=== PATIENT | male | born 1930 | race Two or more races ===

== ENCOUNTER 2017-02-16 12:15 | Inpatient (IN) | payer MEDICARE, MEDICAID ==
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
[2017-02-16 13:55] LABS: Anion Gap 7 mmol/L (2-11); CO2 Carbon Dioxide 28 mmol/L (22-32); Chloride 100 mmol/L (101-111); Glucose 92 mg/dL (70-100); Potassium 4.5 mmol/L (3.5-5.0); Sodium 135 mmol/L (133-145)
[2017-02-16 13:56] LABS: ALT 7 U/L (7-52); AST 14 U/L (13-39); Albumin 4.2 g/dL (3.2-5.2); Alkaline Phosphatase 53 U/L (34-104); BUN/Creatinine Ratio 21.5 (8-20); Blood Urea Nitrogen 23 mg/dL (6-24); EGFR African American 84.1 (>60); EGFR Non-African American 65.4 (>60); Total Protein 7.2 g/dL (6.4-8.9)
[2017-02-16 13:57] LABS: Acetaminophen < 15 mcg/mL; Alcohol < 10 mg/dL (<10); Salicylate < 2.50 mg/dL (<30)
[2017-02-16 14:05] LABS: Hematocrit 46 % (42-52); Hemoglobin 15.4 g/dl (14.0-18.0); Mean Corpuscular Hemoglobin 32 pg (27-31); Mean Corpuscular Volume 96 fL (80-94); Red Blood Count 4.81 10^6/ul (4.0-5.4); White Blood Count 7.4 10^3/ul (3.5-10.8)
[2017-02-16 14:06] LABS: Mean Corpuscular HGB Conc 33 g/dl (31-36); Mean Platelet Volume 9 um3 (7.4-10.4); Red Cell Distribution Width 14 % (10.5-15)
[2017-02-16 14:09] LABS: TSH (Thyroid Stimulating Horm) 1.62 mcIU/mL (0.34-5.60)
[2017-02-16 15:00] LABS: Urine Nitrite Negative (Negative)
[2017-02-16 15:01] LABS: Urine Bacteria Absent (Absent); Urine Bilirubin Negative (Negative); Urine Glucose Negative (Negative)
[2017-02-16 15:26] LABS: Benzodiazepine Urine Screen None Detected (None Detect)
[2017-02-16] MEDS ORDERED: Acetaminophen TAB* 325 MG PO PRN (16:37)
[2017-02-16] MEDS ORDERED: Ondansetron INJ* 2 MG/ML VIAL IV PRN (16:37)
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
[2017-02-16] MEDS: Mometasone/Formoter 200/5 MDI INH SCH (20:46)
[2017-02-16] MEDS: guaiFENesin ER TAB 600 MG PO SCH (21:02)
[2017-02-16] MEDS: Divalproex ER TAB(*) 500 MG PO SCH (21:02)
[2017-02-16] MEDS: Heparin VIAL(*) 5000 UNITS/ML VIAL (FIVE THOUSAND) SUBCUT SCH (21:03)
[2017-02-17] MEDS: Heparin VIAL(*) 5000 UNITS/ML VIAL (FIVE THOUSAND) SUBCUT SCH ×3 (07:21→21:25)
[2017-02-17] MEDS: Mometasone/Formoter 200/5 MDI INH SCH ×2 (07:32→19:54)
[2017-02-17] MEDS: guaiFENesin ER TAB 600 MG PO SCH ×2 (07:32→21:19)
[2017-02-17] MEDS: Divalproex ER TAB(*) 250 MG PO SCH (07:32)
[2017-02-17 09:47] LABS: Hematocrit 45 % (42-52); Hemoglobin 15.2 g/dl (14.0-18.0); Mean Corpuscular HGB Conc 34 g/dl (31-36); Mean Corpuscular Hemoglobin 32 pg (27-31); Mean Corpuscular Volume 95 fL (80-94); Mean Platelet Volume 9 um3 (7.4-10.4); Red Blood Count 4.79 10^6/ul (4.0-5.4); Red Cell Distribution Width 14 % (10.5-15)
[2017-02-17 10:03] LABS: BUN/Creatinine Ratio 19.5 (8-20); Calcium 8.9 mg/dL (8.6-10.3); EGFR African American 75.1 (>60); EGFR Non-African American 58.4 (>60); Potassium 4.3 mmol/L (3.5-5.0)
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
[2017-02-17] MEDS: Divalproex ER TAB(*) 500 MG PO SCH (21:19)
[2017-02-18] MEDS: Heparin VIAL(*) 5000 UNITS/ML VIAL (FIVE THOUSAND) SUBCUT SCH ×3 (06:08→23:00)
[2017-02-18] MEDS: Mometasone/Formoter 200/5 MDI INH SCH ×2 (08:13→19:24)
[2017-02-18] MEDS: guaiFENesin ER TAB 600 MG PO SCH ×2 (08:25→20:26)
[2017-02-18] MEDS: Divalproex ER TAB(*) 250 MG PO SCH (08:26)
--- NOTE | 2017-02-18 14:53 | PN ---
Subjective Date of Service: 02/18/17 Interval History: Patient seen this morning. Pleasantly demented. No complaints. Family History: Unchanged from Admission Social History: Unchanged from Admission Past Medical History: Unchanged from Admission Objective Active Medications: Acetaminophen (Tylenol Tab*) 650 mg PO Q4H PRN PRN Reason: FEVER/PAIN Divalproex Sodium (Depakote Er Tab(*)) 500 mg PO BEDTIME [facility] Last Admin: 02/17/17 21:19 Dose: 500 mg Divalproex Sodium (Depakote Er Tab(*)) 250 mg PO DAILY [facility] Last Admin: 02/18/17 08:26 Dose: 250 mg Guaifenesin (Mucinex*) 600 mg PO BID [facility] Last Admin: 02/18/17 08:25 Dose: 600 mg Heparin Sodium (Porcine) (Heparin Vial(*)) 5,000 units SUBCUT Q8HR [facility] Last Admin: 02/18/17 13:05 Dose: Not Given Mometasone Furoate/Formoterol Fumar (Dulera 200/5 Mdi*) 2 puff INH BID [facility] PRN Reason: Protocol Last Admin: 02/18/17 08:13 Dose: Not Given Ondansetron HCl (Zofran Inj*) 4 mg IV Q6H PRN PRN Reason: NAUSEA Vital Signs 02/17/17 02/17/17 02/18/17 19:56 20:00 08:00 Temperature Pulse Rate Respiratory 18 18 Rate Blood Pressure (mmHg) O2 Sat by Pulse 97 Oximetry 02/18/17 08:14 Temperature 97.4 F Pulse Rate 60 Respiratory 18 Rate Blood Pressure 143/59 (mmHg) O2 Sat by Pulse 96 Oximetry Oxygen Devices in Use Now: None Appearance: Elderly, M, sitting in chair in NAD Eyes: No Scleral Icterus Ears/Nose/Mouth/Throat: Mucous Membranes Moist Neck: NL Appearance and Movements; NL JVP Respiratory: Symmetrical Chest Expansion and Respiratory Effort, Clear to Auscultation Cardiovascular: NL Sounds; No Murmurs; No JVD, RRR Abdominal: NL Sounds; No Tenderness; No Distention Lymphatic: No Cervical Adenopathy Extremities: No Edema Skin: No Rash or Ulcers Neurological: - - Alert, oriented, no focal deficits Result Diagrams: 02/17/17 09:27 02/17/17 09:27 Assess/Plan/Problems-Billing Assessment: 1. Dementia with behavioral disturbances. No metabolic, infectious, or other medical etiology found at this point to explain his aggressive behavior at [facility]. He is on depakote (his PM dose was increased at admission) and is calm, redirectable, and pleasant here. Psych to evaluate 2. Hypothyroidism. TSH was normal yesterday 3. Dispo. full code, awaiting psych input--case discussed with them today; they will evaluate tomorrow
[2017-02-18] MEDS: Divalproex ER TAB(*) 500 MG PO SCH (20:26)
[2017-02-19] MEDS: Heparin VIAL(*) 5000 UNITS/ML VIAL (FIVE THOUSAND) SUBCUT SCH ×3 (06:10→20:32)
[2017-02-19] MEDS: Divalproex ER TAB(*) 250 MG PO SCH ×2 (08:00→08:16)
[2017-02-19] MEDS: guaiFENesin ER TAB 600 MG PO SCH ×3 (08:00→20:32)
[2017-02-19] MEDS: Mometasone/Formoter 200/5 MDI INH SCH ×2 (08:01→20:26)
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
[2017-02-19] MEDS: Divalproex ER TAB(*) 500 MG PO SCH (20:32)
[2017-02-20] MEDS: Heparin VIAL(*) 5000 UNITS/ML VIAL (FIVE THOUSAND) SUBCUT SCH (05:45)
[2017-02-20] MEDS ORDERED: QUEtiapine TAB* 25 MG PO PRN (07:18)
[2017-02-20 08:36] VITALS: BP 104/53
[2017-02-20] MEDS: guaiFENesin ER TAB 600 MG PO SCH (08:43)
[2017-02-20] MEDS: Divalproex ER TAB(*) 250 MG PO SCH (08:43)
[2017-02-20] MEDS ORDERED: Divalproex ER TAB(*) 250 MG PO ONE (08:52)
[2017-02-20] MEDS ORDERED: Divalproex ER TAB(*) 250 MG PO SCH (09:00)
--- NOTE | 2017-02-20 09:27 | PN ---
Subjective Date of Service: 02/20/17 Interval History: Patient seen this morning. Has been wandering off the unit yesterday and this AM. When I brought this up to him he does not recall. No complaints. Family History: Unchanged from Admission Social History: Unchanged from Admission Past Medical History: Unchanged from Admission Objective Active Medications: Acetaminophen (Tylenol Tab*) 650 mg PO Q4H PRN Divalproex Sodium (Depakote Er Tab(*)) 500 mg PO BEDTIME [facility] Divalproex Sodium (Depakote Er Tab(*)) 500 mg PO DAILY [facility] Guaifenesin (Mucinex*) 600 mg PO BID [facility] Heparin Sodium (Porcine) (Heparin Vial(*)) 5,000 units SUBCUT Q8HR [facility] Mometasone Furoate/Formoterol Fumar (Dulera 200/5 Mdi*) 2 puff INH BID [facility] Ondansetron HCl (Zofran Inj*) 4 mg IV Q6H PRN Quetiapine Fumarate (Seroquel Tab*) 25 mg PO DAILY PRN Vital Signs 02/19/17 02/19/17 02/19/17 10:01 15:22 19:43 Temperature 97.8 F 97.5 F Pulse Rate 69 83 Respiratory 18 20 22 Rate Blood Pressure 121/62 119/57 (mmHg) O2 Sat by Pulse 94 95 Oximetry 02/19/17 02/20/17 02/20/17 20:00 05:42 07:33 Temperature Pulse Rate 58 62 Respiratory 22 16 Rate Blood Pressure 109/59 104/53 (mmHg) O2 Sat by Pulse 94 Oximetry Oxygen Devices in Use Now: None Appearance: Elderly, M, sitting in chair in NAD Eyes: No Scleral Icterus Ears/Nose/Mouth/Throat: Mucous Membranes Moist Neck: NL Appearance and Movements; NL JVP Respiratory: Symmetrical Chest Expansion and Respiratory Effort, Clear to Auscultation Cardiovascular: RRR, - - GARY Abdominal: NL Sounds; No Tenderness; No Distention Lymphatic: No Cervical Adenopathy Extremities: No Edema Result Diagrams: 02/17/17 09:27 02/17/17 09:27 Assess/Plan/Problems-Billing Assessment: 1. Dementia with behavioral disturbances. No metabolic, infectious, or other medical etiology found at this point to explain his aggressive behavior at [facility]. He is on depakote, level this AM was still low, have increased to 500 mg P BID. Appreciate Psych eval yesterday, have alerted them to increased Depakote dose as well as prn Seroquel 2. Hypothyroidism. TSH was normal yesterday 3. Dispo. full code, awaiting placement
[2017-02-20] MEDS: Mometasone/Formoter 200/5 MDI INH SCH (09:31)
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
[2017-02-21] MEDS ORDERED: Divalproex ER TAB(*) 250 MG PO SCH (09:00)
== END 2017-02-20 12:58 | DRG 884 ==
LOC: ED 12:15 → MED 16:34
PROVIDERS: ADMIT Internal Medicine; ATTEND Hospitalist
DX: F03.91 Unspecified dementia, unspecified severity, with behavioral disturbance (principal); J44.9 Chronic obstructive pulmonary disease, unspecified; E03.9 Hypothyroidism, unspecified; Z79.1 Long term (current) use of non-steroidal anti-inflammatories (NSAID); Z79.899 Other long term (current) drug therapy; Z88.1 Allergy status to other antibiotic agents; Z88.8 Allergy status to other drugs, medicaments and biological substances; F10.21 Alcohol dependence, in remission
CPT/HCPCS: 36415; 80048; 80053; 80164; 80307; 80320; 80329; 81003; 81015; 84443; 85025; 87086; 94640; A9270-GY; G0480; J1644

== ENCOUNTER 2018-07-30 16:31 | Observation (INO) | payer MEDICARE ==
[2018-07-30] MEDS ORDERED: NS 0.9% 1000 ML** 1,000 ML IV ONE ×2 (16:51→17:11)
--- NOTE | 2018-07-30 16:51 | ED ---
Palpitations / Dysrhythmia - HPI Summary HPI Summary: LEVEL 5 CAVEAT: HPI LIMITED DUE TO PT CONDITION, DEMENTIA An 88 y/o M presents to ED with racing palpitations first noticed at 1500. Per EMS: Pt was picked up from [facility]. Staff there took the patient's vitals at 1500 and noticed it was high (158 bpm.) The last vitals the nursin home provided as three days prior. They also stated he's had increased respiratory distress for the past 10 days. Pt was 82% O2, EMS gave him nasal cannula which helped. MOLST form provided. - History of Current Complaint Time Seen by Provider: 07/30/18 16:33 Hx Obtained From: EMS Hx From Patient Unobtainable Due To: Dementia Onset/Duration: Still Present Timing: Constant Character: Fast - Allergy/Home Medications Allergies/Adverse Reactions: Allergies Allergy/AdvReac Type Severity Reaction Status Date / Time MS Lorazepam [From Ativan] Allergy Unknown Verified 08/21/13 11:42 Reaction Details MS Piperacillin [From Zosyn] Allergy Unknown Verified 02/16/17 12:29 Reaction Details MS Tazobactam [From Zosyn] Allergy Unknown Verified 02/16/17 12:29 Reaction Details Home Medications: Home Medications Acetaminophen [Acetaminophen Extra Strength] 1,000 mg PO Q8HR PRN 07/30/18 [ History Confirmed 07/30/18] Cyanocobalamin TAB* [Vitamin B12 TAB*] 1,000 mcg PO DAILY 07/30/18 [History Confirmed 07/30/18] Dextromethorphan/Benzocaine [Cepacol Sorethroat-Cough Pat] 1 lozenge PO Q4HR PRN 07/30/18 [History Confirmed 07/30/18] Divalproex DR TAB(*) [Depakote DR(*)] 500 mg PO BID 07/30/18 [History Confirmed 07/30/18] Latanoprost 0.005%* [Xalatan 0.005%*] 1 drop BOTH EYES BEDTIME 07/30/18 [ History Confirmed 07/30/18] Multivitamins/Minerals TAB* [Theragran/minerals TAB*] 1 tab PO DAILY 07/30/18 [ History Confirmed 07/30/18] Omeprazole CAP (NF) [Prilosec CAP* 20 MG] 20 mg PO BEDTIME 07/30/18 [History Confirmed 07/30/18] QUEtiapine TAB* [Seroquel 25 MG TAB*] 25 mg PO TID 07/30/18 [History Confirmed 07/30/18] Sertraline* [Zoloft*] 50 mg PO DAILY 07/30/18 [History Confirmed 07/30/18] Terbinafine [Lamisil Advanced] 1 % TOPICAL QPM 07/30/18 [History Confirmed 07/30] guaiFENesin LIQ* [Robitussin*] 10 ml PO Q4H PRN 07/30/18 [History Confirmed 05/08] PMH/Surg Hx/FS Hx/Imm Hx Previously Healthy: No Endocrine/Hematology History: Reports: Hx Thyroid Disease - hypothyroidism Cardiovascular History: Reports: Hx Hypertension Sensory History: Reports: Hx Contacts or Glasses Denies: Hx Hearing Aid Opthamlomology History: Reports: Hx Contacts or Glasses Neurological History: Reports: Hx Dementia Psychiatric History: Reports: Hx of Violent Episodes Against Others Denies: Hx Eating Disorder - Family History Known Family History: Positive: Unknown Family History: LEVEL 5 CAVEAT: FHx limited due to pt condition, dementia - Social History Occupation: Retired Lives: At [facility] [employer] Alcohol Use: None Alcohol Amount: sober x 5 yrs Hx Substance Use: No Substance Use Type: Reports: None Hx Tobacco Use: Yes Smoking Status (MU): Former Smoker Type: Cigarettes Have You Smoked in the Last Year: No Review of Systems - ROS Summary Review of Systems Summary: LEVEL 5 CAVEAT: ROS LIMITED DUE TO PT CONDITION, DEMENTIA Positive: Palpitations All Other Systems Reviewed And Are Negative: No Physical Exam - Summary Physical Exam Summary: GENERAL: Patient is a well-developed and nourished MALE who is lying comfortable in the stretcher. Patient is not in any acute respiratory distress. HEAD AND FACE: Normocephalic EYES: PERRLA, EOMI x 2. EARS: Hearing grossly intact. MOUTH: Oropharynx within normal limits. NECK: Supple, trachea is midline, no adenopathy, no JVD, no carotid bruit. CHEST: Symmetric, no tenderness at palpation LUNGS: Rhonchi throughout CVS: Regular rhythm, tachy, S1 and S2 present, no murmurs or gallops appreciated. ABDOMEN: Soft, non-tender. Bowel sounds are normal. No abdominal abnormal pulsations. EXTREMITIES: Full ROM in all major joints, no edema, no cyanosis or clubbing. NEURO: No acute neurological deficits. Speech is normal and follows commands. SKIN: Dry and warm Triage Information Reviewed: Yes Vital Signs Reviewed: Yes Completion Of Physical Exam Limited Due To: Dementia Diagnostics - Laboratory Result Diagrams: 07/30/18 17:23 07/30/18 17:23 Lab Statement: Any lab studies that have been ordered have been reviewed, and results considered in the medical decision making process. - Radiology CXR Radiology Interpretation Completed By: Radiologist Summary of Radiographic Findings: IMPRESSION: LEFT BASILAR INFILTRATE AND SMALL EFFUSION. ED provider has reviewed this report. - EKG 1652 Cardiac Rate: Tachycardia - 159 bpm EKG Rhythm: SVT 1822 EKG Rhythm: Atrial Flutter - at 79 bpm with AV block Re-Evaluation - Re-Evaluation 1 Re-Evaluation Time: 17:58 Change: Worse Comment: Pt has become increasingly agitated. He attempted to remove his IV, he' s getting up from bed, yelling at staff. 2 Re-Evaluation Time: 18:35 Change: Improved Comment: Pt in bed with less agitation. Sitter present. Course/Dx - Course Course Of Treatment: Pt is an elderly 88 y/o M with dementia presenting to ED for racing palpitations in the high 150s and worsening respiratory distress. Limited PE found rhonchi throughout. Lab work shows low Hgb and Hct, high MCV, INR: 1.12, D-dimer > 1050, BUN/C ratio: 32.9, glucose: 161, CRP: 105.54, BNP: 608. Rapid flu A and B are negative. CXR shows "LEFT BASILAR INFILTRATE AND SMALL EFFUSION.". Pt will be signed out to Dr. Calle at shift change pending CTA. - Diagnoses Provider Diagnoses: PNA (pneumonia) - Critical Care Time Critical Care Time: 30-74 min Discharge - Sign-Out/Discharge Documenting (check all that apply): Sign-Out Patient Signing out patient TO: Gerardo Calle - pending CTA - Discharge Plan Referrals: Gretchen Brower DO [Primary Care Provider] - - Attestation Statements Document Initiated by Scribe: Yes Documenting Scribe: SooYoung NayaneMaal Provider For Whom Scribe is Documenting (Include Credential): Dr. Leah Pelayo MD Scribe Attestation: I, Mitchell Ramirez, scribed for Dr. Leah Pelayo MD on 07/30/18 at 1846. Scribe Documentation Reviewed: Yes Provider Attestation: The documentation as recorded by the scribe, Mitchell Ramirez accurately reflects the service I personally performed and the decisions made by me, Dr. Leah Pelayo MD Status of Scribe Document: Viewed
[2018-07-30] MEDS ORDERED: NS 0.9% 1000 ML** 2,000 ML IV ONE (16:52)
[2018-07-30] MEDS ORDERED: Diltiazem IV* 5 MG/ML 5 ML VIAL (for loading dose/IV Push) (25 MG) IV SLOW PU ONE ×2 (17:09→22:48)
[2018-07-30 17:15] LABS: Influenza A Molecular NEGATIVE (Negative); Influenza B Molecular NEGATIVE (Negative)
[2018-07-30 17:37] LABS: Hematocrit 39 % (42-52); Hemoglobin 12.7 g/dl (14.0-18.0); Mean Corpuscular HGB Conc 33 g/dl (31-36); Mean Corpuscular Hemoglobin 31 pg (27-31); Mean Corpuscular Volume 96 fL (80-94); Mean Platelet Volume 8.4 fL (7.4-10.4); Platelet Count 238 10^3/ul (150-450); Red Blood Count 4.07 10^6/ul (4.00-5.40); Red Cell Distribution Width 15 % (10.5-15); White Blood Count 9.1 10^3/ul (3.5-10.8)
[2018-07-30 17:42] LABS: ABS Basophils 0.1 10^3/ul (0-0.2); ABS Eosinophils 0.1 10^3/ul (0-0.6); ABS Lymphocytes 1.7 10^3/ul (1.0-4.8); ABS Monocytes 1.7 10^3/ul (0-0.8); ABS Neutrophils 5.5 10^3/ul (1.5-7.7); ABS Nucleated RBC 0 10^3/ul; Eosinophil % 1.5 %; Lymphocyte % 18.9 %; Nucleated Red Blood Cells % 0
[2018-07-30 17:46] LABS: Activated Partial Thrombo Time 30.8 seconds (26.0-36.3); INR 1.12 (0.77-1.02)
[2018-07-30 17:51] LABS: Albumin 2.9 g/dL (3.2-5.2); Albumin/Globulin Ratio 0.9 (1-3); BUN/Creatinine Ratio 32.9 (8-20); C Reactive Protein 105.54 mg/L (<8.01); Calcium 8.1 mg/dL (8.6-10.3); EGFR African American 102.9 (>60); EGFR Non-African American 85.1 (>60); Globulin 3.3 g/dL (2-4); Total Bilirubin 0.3 mg/dL (0.2-1.0); Total Protein 6.2 g/dL (6.4-8.9)
[2018-07-30 17:53] LABS: Troponin I 0.03 ng/mL (<0.04)
[2018-07-30] MEDS ORDERED: Iohexol 350* (CONTRAST) 500 ML MDV IV ONE (18:06)
[2018-07-30 18:09] LABS: Free T4 0.92 ng/dL (0.61-1.12)
[2018-07-30] MEDS ORDERED: Cefepime 2 GM in Dextrose(*) 2 GM/50 ML BAG IV ONE (18:17)
[2018-07-30] MEDS ORDERED: Vancomycin(*) 1,000 MG in NS 0.9% 250 ML* 250 ML IVPB ONE (18:17)
[2018-07-30] MEDS ORDERED: NS 0.9% 250 ML* 500 ML ONE (18:33)
--- NOTE | 2018-07-30 19:05 | ED ---
Progress - Progress Note Progress Note: The patient is a sign-out from Dr. Leah Pelayo MD, to Dr. Gerardo Calle MD, at change of shift at 1900 pending Chest CTA to r/o PE and disposition. In the ED course, the patient was administered Diltiazem. Repeat lactic acid is negative. UA reveals ketones, urobilinogen, and ascorbic acid. EKG shows Atrial Flutter. Chest CTA reveals small pleural and pericardial effusions. I consulted with Dr. Brower, hospitalist at 23:10; she accepts the patient for admission. The patient is diagnosed with PNA. He agrees with plan for admission. - Results/Orders Results/Orders: EK BPM, Atrial Flutter 2:1 block. Chest CTA: 1. There is worsening of moderate centrilobular emphysema. 2. There is small to moderate left and small right pleural effusion and likely associated dependent atelectasis but cannot exclude a component of left lower lobe and lingular base pneumonitis. 3. There is a small to moderate pericardial effusion. 4. No visible acute pulmonary embolism but limited evaluation of subsegmental branches of the pulmonary arteries because of respiratory motion artifact. 5. No aortic dissection. 6. Stable left adrenal mass measuring 3 cm. ED physician has reviewed this report. Re-Evaluation - Re-Evaluation 1 Re-Evaluation Time: 17:58 Change: Worse Comment: Pt has become increasingly agitated. He attempted to remove his IV, he' s getting up from bed, yelling at staff. 2 Re-Evaluation Time: 18:35 Change: Improved Comment: Pt in bed with less agitation. Sitter present. Third Eval Re-Evaluation Time: 19:24 Change: Worse - Pt is very agitated, violent, striking out at staff and still needs CTA chest for suspected PE. Will require sedation for agitated violent behavior and to facilitate further workup Course/Dx - Course Course Of Treatment: Pt is an elderly 88 y/o M with dementia presenting to ED for racing palpitations in the high 150s and worsening respiratory distress. Limited PE found rhonchi throughout. Lab work shows low Hgb and Hct, high MCV, INR: 1.12, D-dimer > 1050, BUN/C ratio: 32.9, glucose: 161, CRP: 105.54, BNP: 608. Rapid flu A and B are negative. CXR shows "LEFT BASILAR INFILTRATE AND SMALL EFFUSION.". Pt will be signed out to Dr. Calle at shift change pending CTA. - Diagnoses Provider Diagnoses: PNA (pneumonia), Dementia with behavioral disturbance, Atrial flutter with rapid ventricular response - Critical Care Time Critical Care Time: 30-74 min Discharge - Sign-Out/Discharge Documenting (check all that apply): Patient Departure - [place] [facility]., Receiving Sign-Out Receiving patient FROM: Leah Pelayo - Patient is a sign-out from Dr. Margot Pelayo MD, to Dr. Gerardo Calle MD, at change of shift at 1900 pending Chest CTA and disposition. Patient Received Moderate/Deep Sedation with Procedure: No - Discharge Plan Condition: Stable Disposition: ADMITTED TO [facility] Referrals: Gretchen Brower DO [Primary Care Provider] - - Billing Disposition and Condition Condition: STABLE Disposition: Admitted to [facility] - Attestation Statements Document Initiated by [place]: Yes Documenting Scribe: Marisel Youngblood Provider For Whom Yue is Documenting (Include Credential): Dr. Gerardo Calle MD Scribe Attestation: Marisel Lopez scribed for Dr. Gerardo Calle MD on 07/31/18 at 0444. Scribe Documentation Reviewed: Yes Provider Attestation: The documentation as recorded by the Marisel koenig accurately reflects the service I personally performed and the decisions made by me, Dr. Gerardo Calle MD Status of Scribe Document: Viewed
[2018-07-30] MEDS ORDERED: Haloperidol INJ IV/IM* 5 MG/ML AMP IM ONE (19:23)
[2018-07-30 21:02] LABS: Urine Appearance Cloudy; Urine Bilirubin Negative (Negative); Urine Blood Negative (Negative); Urine Color Amber; Urine Glucose Negative (Negative); Urine Ketones Trace (Negative); Urine Nitrite Negative (Negative); Urine Protein Negative (Negative); Urine Specific Gravity 1.031 (1.010-1.030); Urine Urobilinogen Positive (Negative)
[2018-07-30] MEDS ORDERED: Diltiazem IV VIAL* 125 MG in NS 0.9% 100 ML* 100 ML IVPB ONE (22:48)
[2018-07-30] MEDS ORDERED: NS 0.9% 100 ML* 100 ML ONE (22:56)
[2018-07-31] MEDS ORDERED: Furosemide IV* 10 MG/ML VIAL (40 MG) IV ONE (00:55)
[2018-07-31] MEDS ORDERED: Digoxin IV* 0.5 MG/2 ML AMP (0.25 MG/ML) IV SLOW PU ONE (00:55)
[2018-07-31] MEDS ORDERED: guaiFENesin LIQ* 100 MG/5 ML UDC PO PRN (00:56)
--- NOTE | 2018-07-31 02:51 | HP ---
CC: Gretchen Brower DO, [facility] * HISTORY AND PHYSICAL: DATE OF ADMISSION: 07/31/18 PRIMARY CARE PROVIDER: Gretchen Brower DO, at [facility]. CHIEF COMPLAINT: Shortness of breath and rapid heart rate. HISTORY OF PRESENT ILLNESS: Mr. Connors is an 88-year-old male, well known to myself from seeing him at [facility], who was brought to the emergency room after his heart rate was found to be markedly elevated at 158. The patient also appeared pale, lethargic, and had frequent cough as well as increased confusion. The patient himself was unable to provide any reliable history. In the ER, he was found to be in rapid atrial flutter with rate in the high 150s. The hospitalist service was called to admit the patient due to the rapid atrial flutter. PAST MEDICAL HISTORY: 1. COPD. 2. Dementia with behavioral disturbances and psychosis. 3. Hypertension. 4. Vitamin B12 and vitamin D deficiency. PAST SURGICAL HISTORY: None. MEDICATIONS: 1. Guaifenesin 10 mL p.o. q.4 hours p.r.n. cough. 2. Terbinafine 1% topical q.h.s. to the feet. 3. Zoloft 50 mg p.o. daily. 4. Seroquel 25 mg p.o. t.i.d. 5. Omeprazole 20 mg p.o. q.h.s. 6. Multivitamin 1 tab p.o. daily. 7. Xalatan 1 drop to both eyes at bedtime. 8. Depakote DR 500 mg p.o. b.i.d. 9. Cepacol lozenge, 1 lozenge p.o. q.4 hours p.r.n. cough/sore throat. 10. Vitamin B12, 1000 mcg p.o. daily. 11. Symbicort 160/4.5 two puffs inhaled b.i.d. 12. Tylenol 1000 mg p.o. q.8 hours p.r.n. pain. ALLERGIES: ATIVAN and ZOSYN. FAMILY HISTORY: Unobtainable from the patient. SOCIAL HISTORY: The patient resides at [facility]. 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 He is . He smoked a pipe previously. He had a former history of alcohol abuse. REVIEW OF SYSTEMS: Unobtainable from the patient as he does not answer my questions other than to tell me he does not feeling pain or short of breath. PHYSICAL EXAMINATION GENERAL: The patient is a well-developed, elderly male, seen sitting up in the stretcher, restrained with soft wrist restraints, in no acute distress. VITAL SIGNS: Blood pressure 101/84, pulse 156, respirations 33, temp 98.6, O2 sat 95% on 2 L. HEENT: Pupils are equal and round. Extraocular muscles are intact. Oropharynx is clear. Oral mucosa is moist. There is no submandibular, cervical , or supraclavicular adenopathy. Thyroid is not enlarged. No thyroid nodules are noted. PULMONARY: There are crackles at the bilateral lower lobes. CARDIAC: Normal S1, S2. Heart rate is tachycardic but regular. There is no lower extremity edema. ABDOMEN: Bowel sounds are present. Abdomen is soft, nontender, nondistended. MUSCULOSKELETAL: There is no cyanosis or clubbing of the digits. There is full active range of motion of the upper extremities. Lower extremity range of motion is not tested. NEUROLOGIC: Cranial nerves II through XII appear to be grossly intact. Sensation is intact to light touch throughout. Strength appears to be normal. The patient is at his baseline mental status, though perhaps slightly more confused than usual. SKIN: Warm and dry. There are no rashes. PSYCH: The patient is alert. DIAGNOSTIC STUDIES/LAB DATA: EKG reveals atrial flutter with rapid ventricular response. Chest x-ray reveals left basilar infiltrate and small effusion. CTA chest reveals worsening of moderate central lobular emphysema. There is [id number] left and small right pleural effusion and likely associated dependent atelectasis, but cannot exclude a component of left lower lobe and lingular base pneumonitis. There is a small to moderate pericardial effusion. There is no visible acute pulmonary embolism, but this is a limited exam. There is no aortic dissection. There is stable left adrenal mass. ASSESSMENT AND PLAN: Mr. Connors is an 88-year-old male with a history of progressing dementia and chronic obstructive pulmonary disease who is brought to the emergency room after his heart rate is found to be markedly elevated on routine vital sign check at [facility]. 1. Atrial fibrillation with rapid ventricular response. The patient at this point is on a diltiazem drip at 15 mg per hour. His heart rate is not adequately controlled. We will give digoxin 0.25 mg IV x1. His blood pressure is on the low side, so we will need to be cautious with any further rate reducing agents. A discussion will need to be had with the patient's son about full anticoagulation. Based on my knowledge of the patient at [facility], he is not a substantially high fall risk. Eliquis could be considered from my standpoint, but for now we will utilize Lovenox 1 mg/kg twice daily. 2. Probable decompensated congestive heart failure. At this point, the patient has bilateral crackles. His chest x-ray and CT scan indicate that there are pleural effusions. He is requiring supplemental oxygen to maintain his saturation in the mid 90s. While also the hypoxia may be related to his underlying chronic obstructive pulmonary disease, I do feel that he is likely volume overloaded at this point worsened by the rapid atrial flutter and the fact that he received 2 L of fluid in the emergency room. Lasix 40 mg IV x1 will be administered now. A transthoracic echocardiogram will be ordered. 3. Dementia with behavioral disturbance. The patient is essentially at his baseline mental status. He has been declining over the last several months at [facility]. He at times will have violent outbursts. Generally, however, the patient walks around the unit and will sit in a chair in the [place] which makes him quite content. The patient will also continue on Depakote DR 500 mg twice daily. 4. Chronic obstructive pulmonary disease. The patient is being maintained on his inhaled steroids. There is no wheezing or signs of exacerbation at this point. 5. Gastroesophageal reflux disease. Continue omeprazole. 6. Depression/anxiety. Continue sertraline. 7. DVT prophylaxis. According to the Adult Thrombosis Prophylaxis Risk Factor Assessment Guide, the patient has a total risk factor score of 3, making him high risk. He will be on full dose Lovenox until a decision is made by the patient's son about full anticoagulation for his newly identified atrial flutter. 8. Code status is DNR. TIME SPENT: Sixty-five minutes was spent admitting this patient, of which greater than half was spent [id number] with the patient and reviewing records from [facility]. [id number]/[facility] #: [id number] ZULEMA
[2018-07-31] MEDS ORDERED: Acetaminophen TAB* 325 MG ONE (03:29)
[2018-07-31] MEDS ORDERED: Acetaminophen TAB* 325 MG PO ONE (03:29)
[2018-07-31] MEDS ORDERED: Metoprolol Tartrate IV* 1 MG/ML 5 ML VIAL IV ONE ×2 (03:38→05:58)
[2018-07-31] MEDS ORDERED: Metoprolol Tartrate IV* 1 MG/ML 5 ML VIAL ONE (03:38)
[2018-07-31] MEDS ORDERED: Heparin VIAL(*) 5000 UNITS/ML VIAL (FIVE THOUSAND) SUBCUT SCH (06:00)
[2018-07-31] MEDS: QUEtiapine TAB* 25 MG PO SCH ×3 (08:46→20:08)
[2018-07-31] MEDS: Cyanocobalamin TAB* 500 MCG PO SCH (08:48)
[2018-07-31] MEDS: Mometasone/Formoter 200/5 MDI INH SCH ×2 (08:50→19:50)
[2018-07-31] MEDS: Enoxaparin(*) 80 MG/0.8 ML SYR SUBCUT SCH ×2 (08:50→20:08)
[2018-07-31] MEDS: Divalproex DR TAB(*) 500 MG PO SCH ×2 (08:54→20:07)
[2018-07-31] MEDS ORDERED: Sertraline* 50 MG TAB PO SCH (09:00)
[2018-07-31] MEDS ORDERED: Metoprolol Tartrate TAB* 25 MG PO SCH (09:00)
[2018-07-31] MEDS: Multivitamins/Minerals TAB PO SCH (13:50)
--- NOTE | 2018-07-31 15:52 | PN ---
Progress Note - Progress Note Date of Service: 07/31/18 Note: Patient briefly seen on 4S. Converted to NSR. TSH wnl. Echo pending. My initial impression is that he had A flutter as a consequence of his COPD.
--- NOTE | 2018-07-31 18:36 | ECHO ---
Patient: ELIAS HOGAN [facility] Rec#: [id number] : 1930 Date: 07/31/2018 Age: 88y Height: 444.5 cm / 175.0 in Weight: 31.75 kg / 70.0 lbs Sex: M BSA: 2.6 Room#: -11 Admit Date#: 07/31/2018 Type: Inpatient Referring: Gretchen Brower DO Reading: Jayne Biswas MD Water Valve Mechanic: Mariola Campbell [facility] Transthoracic Echocardiogram Indication: CHF BP: 146/22 HR: 61 Rhythm: A-Flutter Findings History: COPD,dementia,HTN. Technical Comments: The study was technically limited due to the patient's inability to lay in the left lateral decubitus position. Completed at 1115. Left Ventricle: The left ventricular chamber size is normal. Left ventricular systolic function is at the lower limits of normal. The estimated ejection fraction is 50-55%. The assessment of diastolic function is non-diagnostic. Left Atrium: The left atrium is mildly dilated. Right Ventricle: The right ventricular cavity size is normal. The right ventricular global systolic function is normal. Right Atrium: The right atrium is mildly dilated. Aortic Valve: The aortic valve is trileaflet. Systolic excursion of the aortic valve cusps is reduced. Mild aortic cusp sclerosis is present. There is no evidence of aortic regurgitation. There is mild to moderate aortic stenosis. The mean gradient of the aortic valve is 15.84 mmHg. Highest aortic valve velocity was acquired with Pedoff in right sternal border position. Mitral Valve: There is mitral annular calcification. There is mild mitral regurgitation. There is no evidence of mitral stenosis. Tricuspid Valve: The tricuspid valve leaflets are normal. There is trace to mild tricuspid regurgitation. There is evidence that pulmonary hypertension may be underestimated. There is no tricuspid stenosis. Pulmonic Valve: The pulmonic valve appears normal. There is no evidence of pulmonic regurgitation. There is no pulmonic stenosis. Pericardium: A trivial pericardial effusion is visualized. A left pleural effusion is present. There is a moderate pleural effusion. Aorta: There is mild dilatation of the ascending aorta. There is no dilatation of the aortic arch. There is no dilation of the aortic root. Pulmonary Artery: The main pulmonary artery appears normal. Venous: The inferior vena cava appears normal in size. Conclusions The patient appeared to be in atrial flutter throughout the study. The left ventricular chamber size is normal. Left ventricular systolic function is at the lower limits of normal. The estimated ejection fraction is 50-55%. The right ventricular global systolic function is normal. There is moderate aortic stenosis: mean gradient is 16 mmHg, JAYANT 1.4 cm2, peak velocity across the aortic valve is 3 m/s. DI = 0.4. There is mild mitral regurgitation. There is trace to mild tricuspid regurgitation. Compared with prior ECG of 08/07/13, EF is stable, no longer see IW hypokinesis, RV function has normalized, JAYANT is stable, previously 1.5 cm2, MR is stable, TR has improved from mild/moderate. Measurements Name Value Normal Range RVIDd (AP) 2D 2.6 cm (0.9 - 2.6) RVDdMajor (2D) 4 cm (2.2 - 4.4) RAd ISD 4CH 5.9 cm (3.4 - 4.9) RA (A4C)W 4.4 cm (2.9 - 4.6) IVSd (2D) 0.9 cm (0.6 - 1) LVPWd (2D) 1 cm (0.6 - 1) LVIDd (2D) 4.4 cm (3.6 - 5.4) LVIDs (2D) 3.3 cm - LV FS (2D) 27 % (25 - 45) Aortic Annulus 2.2 cm (1.4 - 2.6) Ao root diameter (2D) 3.5 cm (2.1 - 3.5) Ascending Ao 3.6 cm (2.1 - 3.4) Aortic arch 2.9 cm (1.8 - 3.4) Descending Ao 0.3 cm - LA dimension (AP) 2D 4.2 cm (2.3 - 3.8) LAd ISD 4CH 6 cm (2.9 - 5.3) LA ISD 4CH W 5 cm (2.5 - 4.5) Name Value Normal Range LA ESV SP 4CH (A/L) 81 ml - LA ESV SP 2CH (A/L) 82 ml - LA ESV BP (A/L) 87 ml - LA ESV BP (A/L) index 33.64 ml/m2 - LA ESV SP 4CH (MOD) 72 ml - LA ESV SP 2CH (MOD) 79 ml - Name Value Normal Range MV E-wave Vmax 1.1 m/sec - MV deceleration time 171 msec - MV A-wave Vmax 0.6 m/sec - MV E:A ratio 1.9 ratio - LV septal e' Vmax 0.07 m/sec - LV lateral e' Vmax 0.07 m/sec - LV E:e' septal ratio 15.71 ratio - LV E:e' lateral ratio 15.71 ratio - Name Value Normal Range AV Vmax 3 m/sec - AV VTI 53.1 cm - AV peak gradient 35.89 mmHg - AV mean gradient 15.84 mmHg - LVOT diameter 2.2 cm - LVOT Vmax 1 m/sec - LVOT VTI 19.3 cm - LVOT peak gradient 4.03 mmHg - LVOT mean gradient 2.48 mmHg - JAYANT (continuity Vmax) 1.3 cm2 - JAYANT (continuity VTI) 1.4 cm2 - Name Value Normal Range TR Vmax 2.5 m/sec - TR peak gradient 25 mmHg - RAP 8 mmHg - RVSP 33 mmHg - IVC diameter 2 cm - Name Value Normal Range PV Vmax 0.6 m/sec - PV peak gradient 1.41 mmHg -
[2018-07-31] MEDS: Metoprolol Tartrate TAB* 25 MG PO SCH (20:03)
[2018-07-31] MEDS ORDERED: Latanoprost 0.005%* 2.5 ml BTL BOTH EYES SCH (21:00)
[2018-07-31] MEDS ORDERED: Pantoprazole TAB * 40 MG TAB PO SCH (21:00)
[2018-08-01 02:44] LABS: Urine Appearance Clear; Urine Bacteria Absent (Absent); Urine Bilirubin Negative (Negative); Urine Blood 2+ (Negative); Urine Color Yellow; Urine Glucose Negative (Negative); Urine Ketones Negative (Negative); Urine Nitrite Negative (Negative); Urine Protein Negative (Negative); Urine Red Blood Cell 3+(>10/hpf) (Absent); Urine Specific Gravity 1.014 (1.010-1.030); Urine Urobilinogen Negative (Negative); Urine White Blood Cell Absent (Absent)
[2018-08-01 03:08] VITALS: BP 110/74
[2018-08-01] MEDS ORDERED: Sertraline* 25 MG TAB PO SCH (09:00)
[2018-08-01] MEDS: Metoprolol Tartrate TAB* 25 MG PO SCH (09:09)
[2018-08-01] MEDS: Enoxaparin(*) 80 MG/0.8 ML SYR SUBCUT SCH (09:09)
[2018-08-01] MEDS: Cyanocobalamin TAB* 500 MCG PO SCH (09:10)
[2018-08-01] MEDS: Divalproex DR TAB(*) 500 MG PO SCH (09:10)
[2018-08-01] MEDS: QUEtiapine TAB* 25 MG PO SCH (09:10)
[2018-08-01] MEDS: Multivitamins/Minerals TAB PO SCH (09:10)
[2018-08-01] MEDS: Mometasone/Formoter 200/5 MDI INH SCH (09:19)
--- NOTE | 2018-08-01 09:42 | PN ---
Progress Note - Progress Note Date of Service: 08/01/18 Note: I spoke to Germain ([phone]) to update him. He will call his brother Bryan later today. I left a message for Bryan ([phone]).
[2018-08-01] MEDS ORDERED: Apixaban* 5 MG TAB PO SCH (10:00)
--- NOTE | 2018-08-01 10:40 | DS ---
CC: [facility].* DATE OF ADMISSION: 07/31/2018. DATE OF DISCHARGE: 08/01/2018. HISTORY: This 88-year-old was transferred from [facility] when he was found to have a markedly elevated heart rate of 158. He has had some increased confusion, cough and appeared pale and lethargic. He was found to be in atrial flutter with a rate of about 150. He was given Diltiazem infusion and was admitted to the hospital. He spontaneously converted to sinus rhythm after a few hours. Echocardiogram showed moderate aortic stenosis with a valve area of 1.4, ejection fraction was preserved. The patient was given Metoprolol. He appeared to be a little sensitive to this in that his blood pressure is low. There may have still been some residual Diltiazem in his blood. I reduced his Metoprolol dose. On the day of transfer , his blood pressure was 110/64. The patient is being started on Apixaban for CVA prophylaxis. FINAL DIAGNOSES: 1. Atrial flutter. 2. Dementia. DISCHARGE MEDICATIONS: 1. Apixaban 5 mg b.i.d. 2. Metoprolol Tartrate 12.5 mg b.i.d. 3. Sertraline 25 mg daily. 4. Budesonide/Formoterol 160/4.5 two puffs b.i.d. 5. Guaifenesin 10 ml every 4 hours prn. 6. Dextromethorphan/Benzocaine lozenge every 4 hours prn. 7. Acetaminophen 1,000 mg every 8 hours prn. 8. Divalproex 500 mg b.i.d. 9. Omeprazole 20 mg at bedtime. 10. Multivitamin with minerals one tablet daily. 11. Latanoprost 0.005% one drop both eyes at bedtime. 12. Cyanocobalamin 1,000 mcg daily. 13. Terbinafine 1% every evening. 14. Quetiapine 25 mg t.i.d. CONDITION ON DISCHARGE: Stable. DISPOSITION ON DISCHARGE: Transfer to [facility]. [id number]/[facility] #: [id number] MTDD
== END 2018-08-01 14:14 ==
LOC: ED 16:31 → EDHOLD 07-31 11:26 → INTOOBSV 07-31 11:26 → MEDTELE 07-31 13:25
PROVIDERS: ADMIT Internal Medicine; ATTEND Internal Medicine
DX: I48.92 Unspecified atrial flutter (principal); F03.90 Unspecified dementia, unspecified severity, without behavioral disturbance, psychotic disturbance, mood disturbance, and anxiety; R06.02 Shortness of breath; J44.9 Chronic obstructive pulmonary disease, unspecified; I10 Essential (primary) hypertension; K21.9 Gastro-esophageal reflux disease without esophagitis; Z87.891 Personal history of nicotine dependence; R91.8 Other nonspecific abnormal finding of lung field; E53.8 Deficiency of other specified B group vitamins
CPT/HCPCS: 36415; 71046; 71275; 80053; 81003; 81015; 83605; 83880; 84439; 84443; 84484; 85025; 85379; 85610; 85730; 86140; 87040; 93005; 93306; 94640; 96365; 96372; 96375; 99284; A9270-GY; G0378; J0692; J1160; J1630; J1650; J1940; J3370; J3490; Q9967

== ENCOUNTER 2018-08-08 01:31 | Emergency (ER) | payer MEDICARE ==
--- NOTE | 2018-08-08 02:05 | ED ---
Complex/Multi-Sys Presentation - HPI Summary HPI Summary: Pt is an 88 y/o M presenting to the ED brought in by EMS for generalized pain from a recent fall. LEVEL 5 CAVEAT: The pts full hx and physical are limited due to the pts mental status from previous dx of dementia. Per EMS, he fell sometime on 08/07/18 and he has been in pain since. He also does normally ambulate very slowly, as it took an hour for EMS to get him onto the stretcher. - History Of Current Complaint Chief Complaint: EDFall Time Seen by Provider: 08/08/18 01:52 Hx Obtained From: EMS Hx From Patient Unobtainable Due To: Dementia Onset/Duration: Lasting Hours, Still Present Timing: Constant Severity Currently: Moderate Severity Initially: Moderate Location: Pain At: - generalized Aggravating Factor(s): movement, touch Alleviating Factor(s): none Associated Signs And Symptoms: Positive: Confusion, Recent Trauma - fall - Allergies/Home Medications Allergies/Adverse Reactions: Allergies Allergy/AdvReac Type Severity Reaction Status Date / Time lorazepam Allergy Unknown Verified 07/31/18 01:31 Reaction Details piperacillin [From Zosyn] Allergy Unknown Verified 07/31/18 01:31 Reaction Details tazobactam [From Zosyn] Allergy Unknown Verified 07/31/18 01:31 Reaction Details PMH/Surg Hx/FS Hx/Imm Hx Previously Healthy: No Endocrine/Hematology History: Reports: Hx Thyroid Disease - hypothyroidism Denies: Hx Diabetes Cardiovascular History: Reports: Hx Hypertension Respiratory History: Reports: Hx Chronic Obstructive Pulmonary Disease (COPD) Denies: Hx Asthma History: Denies: Hx Renal Disease Sensory History: Reports: Hx Contacts or Glasses Denies: Hx Hearing Aid Opthamlomology History: Reports: Hx Contacts or Glasses Neurological History: Reports: Hx Dementia Psychiatric History: Reports: Hx of Violent Episodes Against Others Denies: Hx Eating Disorder Infectious Disease History: No Infectious Disease History: Denies: Traveled Outside the [place] in Last 30 Days - Family History Known Family History: Positive: Unknown Family History: LEVEL 5 CAVEAT: FHx limited due to pt condition, dementia - Social History Lives: At [facility] Alcohol Use: None Alcohol Amount: sober x 5 yrs Hx Substance Use: No Substance Use Type: Reports: None Hx Tobacco Use: Yes Smoking Status (MU): Former Smoker Type: Cigarettes Have You Smoked in the Last Year: No Review of Systems - ROS Summary Review of Systems Summary: LEVEL 5 CAVEAT: The pts full hx and physical are limited due to the pts mental status from previous dx of dementia. Negative: Fever Positive: Myalgia, Edema Positive: Bruising All Other Systems Reviewed And Are Negative: No Physical Exam - Summary Physical Exam Summary: VITAL SIGNS: Reviewed. GENERAL: Patient is a well-developed and nourished male who is lying comfortable in the stretcher. Patient is not in any acute respiratory distress. HEAD AND FACE: No signs of trauma. No ecchymosis, hematomas or skull depressions. No sinus tenderness. EYES: PERRLA, EOMI x 2, No injected conjunctiva, no nystagmus. EARS: Hearing grossly intact. Ear canals and tympanic membranes are within normal limits. MOUTH: Oropharynx within normal limits. NECK: Supple, trachea is midline, no adenopathy, no JVD, no carotid bruit, no c- spine tenderness, neck with full ROM. CHEST: Symmetric, no tenderness at palpation LUNGS: Decreased breath sounds. No wheezing or crackles. CVS: Tachycardic, irregular rhythm, S1 and S2 present, no murmurs or gallops appreciated. ABDOMEN: Soft, non-tender. No signs of distention. No rebound no guarding, and no masses palpated. Bowel sounds are normal. EXTREMITIES: FROM in all major joints, no cyanosis or clubbing. Bilateral LE 3+ pitting edema NEURO: Alert but disoriented. No acute neurological deficits. Speech is normal and follows commands. SKIN: Dry and warm, ecchymotic areas scattered all over the pts body GCS: 15 Triage Information Reviewed: Yes Vital Signs On Initial Exam: Initial Vitals Temp Pulse Resp BP Pulse Ox 97.1 F 120 14 136/94 100 08/08/18 01:33 08/08/18 01:33 08/08/18 01:33 08/08/18 01:33 08/08/18 01:33 Vital Signs Reviewed: Yes Completion Of Physical Exam Limited Due To: Dementia, Level 5 Diagnostics - Vital Signs Vital Signs Temp Pulse Resp BP Pulse Ox 08/08/18 01:33 97.1 F 120 14 136/94 100 - Laboratory Result Diagrams: 08/08/18 03:24 08/08/18 03:24 Lab Statement: Any lab studies that have been ordered have been reviewed, and results considered in the medical decision making process. - Radiology Chest x-ray Radiology Interpretation Completed By: ED Physician Summary of Radiographic Findings: Bilateral basal atelectasis. Small left pleural effusion. Pending official radiology report. - EKG 0217 Cardiac Rate: Other Rate - 138 EKG Rhythm: Atrial Fibrillation ST Segment: Non-Specific Ectopy: None Complex Multi-Symp Course/Dx Course Of Treatment: Pt is an 88 y/o M presenting to the ED brought in by EMS for generalized pain from a recent fall. LEVEL 5 CAVEAT: The pts full hx and physical are limited due to the pts mental status from previous dx of dementia. A CXR shows bilateral basal atelectasis and small left pleural effusion. After speaking with Dr. Israel, she explained that nursing staff at [facility] called her to let her know that the pt had been found face down, which was not initially communicated to the ED staff. - Diagnoses Provider Diagnoses: Fall with no injury Discharge - Sign-Out/Discharge Documenting (check all that apply): Patient Departure Patient Received Moderate/Deep Sedation with Procedure: No - Discharge Plan Condition: Stable Disposition: HOME Referrals: Gretchen Brower, [Primary Care Provider] - Additional Instructions: Please follow up with your primary care provider in 2-3 days. Return to the emergency department with any new or worsening symptoms. - Billing Disposition and Condition Condition: STABLE Disposition: Home - Attestation Statements Document Initiated by Yue: Yes Documenting Scribe: Leonor Orozco Provider For Whom Yue is Documenting (Include Credential): Promise Gregg MD. Scribe Attestation: Leonor Lopez scribed for Promise Gregg MD. on 08/08/18 at 0608. Scribe Documentation Reviewed: Yes Provider Attestation: The documentation as recorded by the [facility] accurately reflects the service I personally performed and the decisions made by Ahsan mcneil MD. Status of Scribe Document: Viewed
[2018-08-08] MEDS ORDERED: Digoxin IV* 0.5 MG/2 ML AMP (0.25 MG/ML) IV SLOW PU ONE (02:09)
[2018-08-08] MEDS ORDERED: NS 0.9% 1000 ML** 1,000 ML IV ONE (02:09)
[2018-08-08] MEDS ORDERED: Diltiazem IV* 5 MG/ML 5 ML VIAL (for loading dose/IV Push) (25 MG) IV SLOW PU ONE (02:10)
[2018-08-08 03:33] LABS: ABS Basophils 0 10^3/ul (0-0.2); ABS Eosinophils 0 10^3/ul (0-0.6); ABS Lymphocytes 1.2 10^3/ul (1.0-4.8); ABS Monocytes 0.8 10^3/ul (0-0.8); ABS Neutrophils 7.1 10^3/ul (1.5-7.7); ABS Nucleated RBC 0 10^3/ul; Eosinophil % 0.3 %; Hematocrit 37 % (36-46); Hemoglobin 12.3 g/dL (14.0-18.0); Lymphocyte % 13.5 %; Mean Corpuscular HGB Conc 33 g/dL (31-36); Mean Corpuscular Hemoglobin 31 pg (27-31); Mean Corpuscular Volume 95 fL (80-94); Mean Platelet Volume 8.8 fL (7.4-10.4); Nucleated Red Blood Cells % 0.1; Platelet Count 288 10^3/uL (150-450); Red Blood Count 3.95 10^6 /uL (4.18-5.48); Red Cell Distribution Width 15 % (10.5-15); White Blood Count 9.3 10^3/uL (3.5-10.8)
[2018-08-08 03:41] LABS: INR 1.09 (0.77-1.02)
[2018-08-08 03:49] LABS: ALT 29 U/L (7-52); AST 28 U/L (13-39); Albumin 3.1 g/dL (3.2-5.2); Albumin/Globulin Ratio 0.9 (1-3); Alkaline Phosphatase 44 U/L (34-104); Anion Gap 9 mmol/L (2-11); BUN/Creatinine Ratio 47.8 (8-20); Blood Urea Nitrogen 54 mg/dL (6-24); C Reactive Protein 83.61 mg/L (<8.01); CO2 Carbon Dioxide 29 mmol/L (22-32); Calcium 8.9 mg/dL (8.6-10.3); Chloride 102 mmol/L (101-111); EGFR African American 74.1 (>60); EGFR Non-African American 61.2 (>60); Globulin 3.5 g/dL (2-4); Glucose 96 mg/dL (70-100); Potassium 4.8 mmol/L (3.5-5.0); Sodium 140 mmol/L (135-145); Total Protein 6.6 g/dL (6.4-8.9)
[2018-08-08 03:54] LABS: Troponin I 0.04 ng/mL (<0.04)
[2018-08-08] MEDS ORDERED: Morphine INJ* 2 MG/ML 1 ML SYRINGE (TWO MG - NEW SYRINGE VERSION) IV ONE (04:17)
[2018-08-08] MEDS ORDERED: Morphine 4 MG/ML VIAL (1 ml) 4 MG/ML VIAL IV ONE (05:00)
[2018-08-08 07:02] VITALS: BP 100/72
--- NOTE | 2018-08-08 17:17 | PN ---
Progress Note - Progress Note Date of Service: 08/07/18 Note: Final CXR read per radiology: IMPRESSION: 1. BIBASILAR ATELECTASIS VERSUS EARLY CONSOLIDATION. 2. SMALL PLEURAL EFFUSION WITH NODULAR PLEURAL THICKENING OF THE LEFT. 3. RECOMMEND FOLLOW-UP UNTIL RESOLUTION. Pt. seen for fall. No report of cough or fever. No change in treatment needed at this time.
== END 2018-08-08 07:02 | disposition home or self-care (01) ==
LOC: ED 01:31
DX: R52 Pain, unspecified (principal); T14.8XXA Other injury of unspecified body region, initial encounter; W19.XXXA Unspecified fall, initial encounter; Y92.129 Unspecified place in nursing home as the place of occurrence of the external cause; J98.11 Atelectasis; J90 Pleural effusion, not elsewhere classified; I48.91 Unspecified atrial fibrillation; M79.10 Myalgia, unspecified site; R60.0 Localized edema; F03.90 Unspecified dementia, unspecified severity, without behavioral disturbance, psychotic disturbance, mood disturbance, and anxiety; I10 Essential (primary) hypertension; Z88.0 Allergy status to penicillin; Z88.8 Allergy status to other drugs, medicaments and biological substances; Z87.891 Personal history of nicotine dependence
CPT/HCPCS: 36415; 70450; 71045; 72125; 80053; 83605; 83880; 84484; 85025; 85610; 85730; 86140; 87040; 93005; 96361; 96374; 96375; 99284; J1160; J2270